=== PATIENT | female | born 1980 | race Caucasian/White ===

== ENCOUNTER 2017-05-11 11:20 | Emergency (ER) | payer OTHER ==
[~2017-05-11] VITALS: Ht 160 cm; Wt 78.0 kg
[2017-05-11 12:27] LABS: HEMATOCRIT 39.9 % (36.0-46.0); MCH 30.8 PG (29.0-34.0); MCHC 33.8 G/DL (30.0-36.0); MCV 91.1 FL (83-99); MEAN PLAT.VOLUME 9.5 uM^3 (9.5-12.4); PLATELET COUNT 321 K/uL (156-360); RBC DIS.WIDTH-CV 13.2 % (11.8-14.6); RBC DIS.WIDTH-SD 44.9 % (39-53); RED BLOOD COUNT 4.38 M/uL (3.80-5.20); WHITE BLOOD COUNT 14.5 K/uL (4.1-10.2)
[2017-05-11 12:35] LABS: CHLORIDE 104 mEq/L (99-109); POTASSIUM 3.8 mEq/L (3.7-5.4); SODIUM 139 mEq/L (136-147)
[2017-05-11 12:37] LABS: GLUCOSE 96 mg/dL (70-99)
[2017-05-11 12:38] LABS: ANION GAP 12 MEQ/L (2-14)
[2017-05-11 12:40] LABS: ALKALINE PHOSPHATASE 66 IU/L (3-129)
[2017-05-11 12:41] LABS: GFR ESTIMATE (CALCULATED) > 59 mL/min/
[2017-05-11 12:42] LABS: UREA NITROGEN (BUN) 8 mg/dL (9-23)
[2017-05-11] MEDS ORDERED: BACTRIM,SEPT1 TABLET PO (12:47)
[2017-05-11] MEDS ORDERED: KEFLEX500 MG PO (12:47)
[2017-05-11] MEDS ORDERED: MOTRIN800 MG PO (12:47)
[2017-05-11] MEDS ORDERED: ULTRAM50 MG PO (12:48)
[2017-05-11 13:01] VITALS: BP 120/74
== END 2017-05-11 13:03 | disposition home or self-care (01) ==
LOC: EME 11:20
PROVIDERS: Nurse Practitioner Family
DX: L02.415 Cutaneous abscess of right lower limb (principal); L03.115 Cellulitis of right lower limb; F17.210 Nicotine dependence, cigarettes, uncomplicated; Z98.51 Tubal ligation status; Z88.6 Allergy status to analgesic agent
CPT/HCPCS: 80053; 83605; 85027; 87040; 87070; 87075; 87205; 99281; 99285; J1885; J2405; J3010; J7030

== ENCOUNTER 2017-12-21 19:21 | Emergency (ER) | payer OTHER ==
[~2017-12-21] VITALS: Ht 160 cm; Wt 83.2 kg
[~2017-12-21 19:21] MED LIST: BACTRIM,SEPT1 TABLET PO; KEFLEX500 MG PO; MOTRIN800 MG PO; ULTRAM50 MG PO
[2017-12-21] MEDS ORDERED: FIORICET 50-301 EAC1 PO (21:13)
[2017-12-21] MEDS ORDERED: ZOFRAN4 MG PO (21:14)
[2017-12-21 21:25] VITALS: BP 100/67
== END 2017-12-21 21:28 | disposition home or self-care (01) ==
LOC: EME 19:21 → RME 19:21
DX: R51 Headache (principal); R11.0 Nausea; F14.90 Cocaine use, unspecified, uncomplicated; F17.200 Nicotine dependence, unspecified, uncomplicated; Z88.6 Allergy status to analgesic agent
CPT/HCPCS: 99281; 99285; J0780; J1200; J1885; J7120